=== PATIENT | female | born 1970 | race Caucasian/White ===

== ENCOUNTER 2023-09-16 09:43 | Outpatient (AMB) | payer OTHER, SELFPAY ==
--- NOTE | 2023-09-16 10:09 | A.OFFPC_ITS ---
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 Intake Note: pt is here to est care and is in need of a PE pt had last PAP was in the spring at [facility] pt last colon screen was 2-3 years ago in [place] Allergies No Known Allergies Allergy (Verified 09/16/23 10:33) Medication List - Last Reconciled 09/16/23 by Farzaneh Olivas MD levothyroxine 112 mcg PO DAILY Tobacco use date assessed: 09/16/23 Dental Screening Dental Screen Date: 09/16/23 Did you have a dental visit in the last 12 months?: Yes Did you have a dental problem in the last 6 months where you did not have access to dental care?: No Was dental information given to patient?: Patient has dentist HPI MANAGER COSMETIC-Requesting Physical Exam HPI Details 53-year-old lady here today to establish care with a new PCP and for physical exam. She has cancer status post total thyroidectomy, now with acquired hypothyroidism currently on levothyroxine 112 mcg taken once a day. Currently being followed at [facility] endocrinology. She is up-to-date with her screening mammogram done at [facility] April 19 with benign finding, and last Pap smear was also done at [facility] 04/24/2023, again with negative findings, sees Dr. Herrera. . She states that she had a screening colonoscopy done in [place] approximately 5 years ago. She is up-to-date with all her vaccines including her COVID booster which she got from [employer], has not yet had her tetanus diphtheria whooping cough vaccine. Complains of chronic right lower back pain sometimes radiating to right hip, aggravated by lying on right side, prolonged running, walking. Has been seen by chiropractor , with no improvement with adjustments of her spine. Takes ibuprofen apply as moist heat cold to affected area with no improvement. [facility] Medical History (Updated 09/16/23 @ 10:55 by Farzaneh Olivas MD) Chronic right sacroiliac joint pain Hx of thyroid cancer Acquired hypothyroidism Surgical History (Updated 09/16/23 @ 10:43 by Farzaneh Olivas MD) Hx of thyroidectomy Family History (Updated 09/16/23 @ 10:45 by Farzaneh Olivas MD) Father Substance use disorder Mental health disorder Alcoholism Mother Multiple sclerosis Social History Housing: Condominium Patient Tobacco Use Status: Never used Tobacco e-Cigarette/Vaping Use: Never Used Second Hand Smoke Exposure: No service: No Current occupational status: employed Current occupation: [employer] Current occupational exposures/hazards: No Cognitive needs: No Hearing needs: No Vision needs: No Female Reproductive History Menstrual Date of last pap smear: 04/24/23 Date of Mammogram: 04/19/23 Other: [facility] and [facility] exam Questionnaire PHQ-9 Over the last 2 weeks, how often have you been bothered by any of the following problems? 1. Little interest or pleasure in doing things: not at all 2. Feeling down, depressed, or hopeless: not at all 3. Trouble falling or staying asleep, or sleeping too much: nearly every day 4. Feeling tired or having little energy: nearly every day 5. Poor appetite or overeating: not at all 6. Feeling bad about yourself - or that you are a failure or have let yourself or your family down: not at all 7. Trouble concentrating on things, such as reading the newspaper or watching television: not at all 8. Moving or speaking so slowly that other people could have noticed. Or the opposite - being so fidgety or restless that you have been moving around a lot more than usual: not at all 9. Thoughts that you would be better off or of hurting yourself in some way: not at all Total score: 6 Depression Screening Interpretation: Negative Depression Screening Done: Yes 36573 - PHQ-9 Billing: Yes Source: Developed by Drs. Epi Brice, Gracy Cloud, Gary Baca and colleagues, with an educational osorio from [employer]. Thrive Questionnaire Date Thrive assessed: 09/16/23 I am a: Patient What is your living situation today?: I have a steady place to live Within the past 12 months, did the food you bought not last and you didn't have the money to get more?: Never true Do you have trouble paying for medicines?: No Do you have trouble getting transportation to medical appointments?: No Do you have trouble paying your heating and electricity bill?: No Do you have trouble taking care of your child, family member or friend?: No Do you have trouble with day-to-day activities such as bathing, preparing meals, shopping, managing finances, etc.?: No Are you currently unemployed and looking for a job?: Yes Are you interested in more education?: No AUDIT C Alcohol Use Questionnaire (AUDIT-C) 1. How often do you have a drink containing alcohol?: 2-3 times a week 2. How many drinks containing alcohol do you have on a typical day when you are drinking?: 1 or 2 3. How often do you have six or more drinks on one occasion?: Never Total Score: 3 AILEEN-7 AMB Questionnaire AILEEN-7 Date AILEEN - 7 assessed: 09/16/23 Feeling nervous, anxious, or on edge: 0 = Not at all Not being able to stop or control worryin = Not at all Worrying too much about different things: 0 = Not at all Trouble relaxin = Not at all Being so restless that it is hard to sit still: 0 = Not at all Becoming easily annoyed or irritable: 0 = Not at all Feeling afraid as if something awful might happen: 0 = Not at all Total AILEEN-7 score (0-4 normal; 5-9 mild; 10-14 moderate; 15-21 severe): 0 Source: Developed by Drs. Epi Brice, Gracy Cloud, Gary Baca and colleagues, with an educational osorio from [employer]. AILEEN-7 Assessment Billing AILEEN-7 Assessment Tool: AILEEN-7 Assessment 67419 Review of Systems Const Denies body aches, Denies fatigue, Denies fever(s), Denies headache(s) and Denies weakness Eyes Denies change in vision, Denies eye discharge and Denies itchy eyes ENT Denies dizziness, Denies headache(s), Denies nasal congestion, Denies nasal dis charge and Denies sore throat Card Denies chest pain, Denies lightheadedness, Denies palpitations and Denies dyspnea Resp Denies chest congestion, Denies cough, Denies dyspnea and Denies wheezing GI Denies abdominal pain, Denies change in bowel habits and Denies heartburn Denies hematuria, Denies urinary frequency, Denies dysuria and Denies urinary urgency Musc Reports as per HPI Skin/Breast Denies breast pain, Denies breast mass, Denies lesions and Denies rash Neuro Denies dizziness, Denies headache(s) and Denies weakness Psych Reports no additional complaints Endo Denies fatigue, Denies polydipsia, Denies polyuria and Denies palpitations Demetrio/Lymph Denies easy bruising Aller/Immun Denies itchy eyes, Denies seasonal rhinorrhea and Denies wheezing Physical exam (Primary Care) Vital Signs: Last Vital Signs Pulse 84 09/16/23 10:10 BP 110/76 09/16/23 10:10 Pulse Ox 96 09/16/23 10:10 Oxygen Delivery Method Room Air 09/16/23 10:10 BMI result Body Mass Index 25.6 Tobacco/Smoking Status: Tobacco use Status Tobacco use date assessed 09/16/23 09/16/23 10:17 Patient Tobacco Use Status Never used Tobacco 09/16/23 10:17 e-Cigarette/Vaping Use Never Used 09/16/23 10:17 PHQ-9: PHQ-9 Score PHQ-9: Total score 6 09/16/23 11:08 Depression Screening Interpretation: Negative Thrive Assessment: Date of Thrive Assessment Date Thrive assessed 09/16/23 09/16/23 10:34 Const General: no acute distress and alert Nutritional Appearance: average body habitus Orientation/consciousness: patient oriented x3 HENMT Head: Yes normocephalic and Yes atraumatic Ears: external ears normal, TM's normal bilaterally and EAC's normal General nose exam: Normal external nose present and No nasal discharge present Face and sinus: Yes face symmetric Mouth: Normal oral and palatal mucosa present, lip normal, tongue normal, oropharynx normal and moist mucous membranes Eyes General: appearance normal, both eyes and all related structures Eyelids: Yes eyelids normal Conjunctivae: conjunctivae normal Sclerae: sclerae normal Pupils: Equal, round and reactive pupils present EOM: EOMs intact bilaterally Neck Neck: Yes full ROM, Yes no lymphadenopathy and Yes supple Thyroid: Thyroid normal Chest Breast/axilla palpation: normal palpation of the breasts Resp Effort & Inspection: normal respiratory effort and able to speak in complete sentences Auscultation: clear to auscultation bilaterally Cardio Rate: regular rate Rhythm: regular rhythm Heart sounds: S1 normal heart sound present and S2 normal heart sound present GI Palpation (GI): Soft to palpation, nontender, no guarding and no masses Auscultation: normal bowel sounds General: Yes deferred (sees Dr Herrera) Back/Spine/Pelvis Back: back tenderness Sacroiliac joints: on the right tender to palpation and by passive hyperextension of lower ext Skin General skin exam: no rashes or lesions noted Neuro General: patient oriented x3, gait normal, moves all extremities, Normal light touch and pain sensation, no focal motor deficits and CN's II-XI intact bilaterally Cranial nerves: Yes Equal, round and reactive pupils present Cognition (Neuro): normal cognition Gait exam (Neuro): Normal gait present Motor exam (neuro): 5/5 motor strength present throughout Extrem General: Yes normal to inspection, Yes full ROM, Yes no joint enlargement, Yes no pedal edema and Yes normal gait Psych Appearance: grossly normal and well kempt Mental Status: mental status grossly normal Speech and movement: Normal speech and movement present Affect: normal affect Attitude: cooperative Thought process: Normal thought process present Thought content: Normal thought content present Immunizations Boostrix Tdap 2.5 Lf unit-8 mcg-5 Lf/0.5 mL intramuscular syringe Performing Provider: Farzaneh Olivas MD Performing Location: [facility] Administered by: Lien Alves CMA on 09/16/23 11:08 Dose Route Admin Location Dispensed Lot Number Expiration Date NDC Store Keeper 0.5 mL IM Left Deltoid 0.5 mL [id number] 11/01/25 [id number] [employer] VIS Given Date VIS Provided VIS Publication Date 09/16/23 Single Vaccine 21 Eligibility Eligibility Date Funding Source Not [facility] Eligible 09/16/23 Private Assessment and Plan Assessment & Plan (1) Annual visit for general adult medical examination with abnormal findings: Code(s): Z00.01 - Encounter for general adult medical examination with abnormal findings Plan: Will check appropriate labs. Recommended dental visit every 6 months and regular eye exams, at least every 2 years. Take adequate calcium in diet and vitamin-D 3 at 2000 IU per cap once a day, in addition to weight-bearing exercises to help maintain good muscle tone and weight control. Instructed to do self-breast exam, and continue with yearly mammogram, or currently up-to-date goes to [facility], and sees [facility] OBGYN for her routine Pap and pelvic exam.. Up-to-date with her screening colonoscopy goes to [facility], will get a copy of the results. Up-to-date with her COVID booster and flu shot, Tdap given today. Referred to dermatology for routine skin exam and skin cancer screening (2) Acquired hypothyroidism: Comment: ff'd at endocrinology at [facility] Code(s): E03.9 - Hypothyroidism, unspecified Plan: Followed by endocrine clinic at [facility] currently on levothyroxine 112 mcg daily (3) Hx of thyroid cancer: Code(s): Z85.850 - Personal history of malignant neoplasm of thyroid Plan: Followed at endocrine clinic at [facility] (4) Chronic right sacroiliac joint pain: Code(s): M53.3 - Sacrococcygeal disorders, not elsewhere classified; G89.29 - Other chronic pain Plan: Referral to physical therapy for further evaluation and management (5) Skin cancer screening: Code(s): Z12.83 - Encounter for screening for malignant neoplasm of skin Plan: dermatology consult ordered (6) Need for Tdap vaccination: Code(s): Z23 - Encounter for immunization Plan: Tdap given Orders: Orders Basic Metabolic Panel Fasting 09/16/23 E03.9 - Hypothyroidism, unspecified, Z00.01 - Encounter for general adult medical examination with abnormal findings, Z13.220 - Encounter for screening for lipoid disorders, Z78.0 - Asymptomatic menopausal state Vitamin D 25-OH Total 09/16/23 E03.9 - Hypothyroidism, unspecified, Z00.01 - Encounter for general adult medical examination with abnormal findings, Z13.220 - Encounter for screening for lipoid disorders, Z78.0 - Asymptomatic menopausal state Lipid Panel 09/16/23 E03.9 - Hypothyroidism, unspecified, Z00.01 - Encounter for general adult medical examination with abnormal findings, Z13.220 - Encounter for screening for lipoid disorders, Z78.0 - Asymptomatic menopausal state Thyroid Stimulating Hormone 09/16/23 E03.9 - Hypothyroidism, unspecified, Z00.01 - Encounter for general adult medical examination with abnormal findings, Z13.220 - Encounter for screening for lipoid disorders, Z78.0 - Asymptomatic menopausal state Free T4 (Free Thyroxine) 3 Months E03.9 - Hypothyroidism, unspecified, Z00.01 - Encounter for general adult medical examination with abnormal findings, Z13.220 - Encounter for screening for lipoid disorders, Z78.0 - Asymptomatic menopausal state PT Evaluation and Treatment 09/16/23 G89.29 - Other chronic pain, M53.3 - Sacrococcygeal disorders, not elsewhere classified TDaP Immunization 09/16/23 Z23 - Encounter for immunization Referrals Dermatology Referral Z12.83 - Encounter for screening for malignant neoplasm of skin Coding Level of Care Code New Pt Prev Care 40-64y(89251) Diagnoses Annual visit for general adult medical examination with abnormal findings Z00.01 Acquired hypothyroidism E03.9 Hx of thyroid cancer Z85.850 Chronic right sacroiliac joint pain M53.3; G89.29 Skin cancer screening Z12.83 Need for Tdap vaccination Z23 Additional Codes AILEEN-7 Assessment Billing - AILEEN-7 Assessment Tool: AILEEN-7 Assessment 11710 ([id number])
[2023-09-16 10:10] VITALS: BP 110/76; PULSE 84; O2SAT 96; BMI 25.6
== END 2023-09-16 11:51 | disposition home or self-care (01) ==
PROVIDERS: PCP Internal Medicine; Visit Provider Internal Medicine
DX: Z00.00 Encounter for general adult medical examination without abnormal findings (principal); E03.9 Hypothyroidism, unspecified; Z85.850 Personal history of malignant neoplasm of thyroid; Z23 Encounter for immunization; M53.3 Sacrococcygeal disorders, not elsewhere classified; G89.29 Other chronic pain
CPT/HCPCS: 90471; 90715; 99386

== ENCOUNTER 2023-09-16 11:08 | Outpatient (REF) | payer OTHER, SELFPAY ==
[2023-09-16 14:25] LABS: Anion Gap 12 (12-20); Blood Urea Nitrogen 17 mg/dL (9-16); Calcium 9.9 mg/dL (8.4-10.2); Carbon Dioxide 29 mmol/L (22-29); Chloride 106 mmol/L (96-108); Cholesterol 200 mg/dL (<200); Estimated Glomerular Filt Rate > 60; Glucose Fasting 89 mg/dL (60-99); HDL Cholesterol 67 mg/dL (>40); LDL Cholesterol Calculated 118 mg/dL (<100); Potassium 4.6 mmol/L (3.3-5.1); Sodium 142 mmol/L (135-145); Thyroid Stimulating Hormone 0.01 uIU/mL (0.32-4.0); Triglycerides 77 mg/dL (<150); Vitamin D 25-OH Total 45.9 ng/mL (>30)
== END 2023-09-16 11:09 | disposition home or self-care (01) ==
LOC: HO.HMGCLDS 11:08
PROVIDERS: PCP Internal Medicine; Visit Provider Internal Medicine
DX: Z00.01 Encounter for general adult medical examination with abnormal findings (principal); Z13.220 Encounter for screening for lipoid disorders; E03.9 Hypothyroidism, unspecified; Z78.0 Asymptomatic menopausal state
CPT/HCPCS: 36415; 80048; 80061; 82306; 84443

== ENCOUNTER 2024-10-01 12:32 | Outpatient (AMB) | payer OTHER, SELFPAY ==
--- NOTE | 2024-10-01 12:34 | MHC.PC.OV ---
Vital Signs 10/01/24 12:41 Height 5 ft 4 in Weight 138 lb BMI 23.7 BP 90/62 Blood Pressure Location Rt brachial Position Sitting Pulse 93 Pulse Source Pulse Oximeter Pulse Oximetry (%) 97 Oxygen Delivery Method Room Air Intake Visit Reasons: ANNUAL Intake Note: Pt is here today for her PE: Last mammogram 04/19/23, papsmear 04/24/23 Allergies No Known Allergies Allergy (Verified 10/01/24 12:55) Medication List - Last Reconciled 10/01/24 by Farzaneh Olivas MD thyroid (pork) (SKI MAKER Thyroid) 90 mg PO DAILY Tobacco use date assessed: 10/01/24 Dental Screening Dental Screen Date: 10/01/24 Did you have a dental visit in the last 12 months?: Yes Did you have a dental problem in the last 6 months where you did not have access to dental care?: No Was dental information given to patient?: Patient has dentist HPI ANNUAL HPI Details 54-year-old lady with history of papillary thyroid carcinoma status post mastectomy, currently followed at [facility] endocrine clinic and on SKI MAKER thyroid 90 mcgg daily, here today for physical exam. Pap smear and mammogram was done a year ago at [facility]. [facility] Medical History (Updated 10/04/24 @ 16:15 by Farzaneh Olivas MD) Exercise-induced bronchospasm Postsurgical hypothyroidism Hx of papillary thyroid carcinoma Chronic right sacroiliac joint pain Hx of thyroid cancer Surgical History (Updated 10/01/24 @ 13:33 by Farzaneh Olivas MD) Hx of thyroidectomy Family History (Updated 09/16/23 @ 10:45 by Farzaneh Olivas MD) Father Substance use disorder Mental health disorder Alcoholism Mother Multiple sclerosis Social History Housing: Condominium Patient Tobacco Use Status: Never used Tobacco e-Cigarette/Vaping Use: Never Used Second Hand Smoke Exposure: No service: No Current occupational status: employed Current occupation: [employer] Current occupational exposures/hazards: No Cognitive needs: No Hearing needs: No Vision needs: No Female Reproductive History Menstrual Other: Currently goes to [facility] OBGYN for her routine Pap and pelvic exam as well as mammogram screenings . Up-to-date with his screening colonoscopy done in [place] 6 years ago with negative findings, per patient. Has been feeling well except for intermittent episodes of wheezing especially when going outdoors or when she runs. Requesting refill on a prescription for albuterol inhaler which has used in the past for exercise-induced bronchospasm. Questionnaire PHQ-9 Over the last 2 weeks, how often have you been bothered by any of the following problems? 1. Little interest or pleasure in doing things: not at all 2. Feeling down, depressed, or hopeless: not at all 3. Trouble falling or staying asleep, or sleeping too much: more than half the days 4. Feeling tired or having little energy: several days 5. Poor appetite or overeating: not at all 6. Feeling bad about yourself - or that you are a failure or have let yourself or your family down: not at all 7. Trouble concentrating on things, such as reading the newspaper or watching television: not at all 8. Moving or speaking so slowly that other people could have noticed. Or the opposite - being so fidgety or restless that you have been moving around a lot more than usual: not at all 9. Thoughts that you would be better off or of hurting yourself in some way: not at all Total score: 3 Depression Screening Interpretation: Negative Depression Screening Done: Yes 55919 - PHQ-9 Billing: Yes Source: Developed by Drs. Epi Brice, Gracy Cloud, Gary Baca and colleagues, with an educational osorio from [employer]. Thrive Questionnaire Date Thrive assessed: 10/01/24 I am a: Patient What is your living situation today?: I have a steady place to live Within the past 12 months, did the food you bought not last and you didn't have the money to get more?: Never true Within the past 12 months, did you worry whether your food would run out before you got money to buy more?: Never true Do you have trouble paying for medicines?: No Do you have trouble getting transportation to medical appointments?: No Do you have trouble paying your heating and electricity bill?: No Do you have trouble taking care of your child, family member or friend?: No Do you have trouble with day-to-day activities such as bathing, preparing meals, shopping, managing finances, etc.?: No Are you currently unemployed and looking for a job?: No Are you interested in more education?: No Please select the resources that you would like help with: None Currently or been in a relationship where the following occur: No concerns reported THRIVE Score: 0 AUDIT C Alcohol Use Questionnaire (AUDIT-C) 1. How often do you have a drink containing alcohol?: Monthly or less 2. How many drinks containing alcohol do you have on a typical day when you are drinking?: 1 or 2 3. How often do you have six or more drinks on one occasion?: Never Total Score: 1 AILEEN-7 AMB Questionnaire AILEEN-7 Date AILEEN - 7 assessed: 10/01/24 Feeling nervous, anxious, or on edge: 0 = Not at all Not being able to stop or control worryin = Not at all Worrying too much about different things: 0 = Not at all Trouble relaxin = Not at all Being so restless that it is hard to sit still: 0 = Not at all Becoming easily annoyed or irritable: 0 = Not at all Feeling afraid as if something awful might happen: 0 = Not at all Total AILEEN-7 score (0-4 normal; 5-9 mild; 10-14 moderate; 15-21 severe): 0 Source: Developed by Drs. Epi Brice, Gracy Cloud, Gary Baca and colleagues, with an educational osorio from [employer]. AILEEN-7 Assessment Billing AILEEN-7 Assessment Tool: AILEEN-7 Assessment 01995 Review of Systems Const Denies body aches, Denies fatigue, Denies fever(s), Denies headache(s) and Denies weakness Eyes Denies change in vision ENT Denies dizziness, Denies headache(s), Denies nasal congestion, Denies nasal discharge and Denies sore throat Card Denies chest pain, Denies lightheadedness, Denies palpitations and Denies dyspnea Resp Reports as per HPI, Denies chest congestion and Denies dyspnea GI Denies abdominal pain, Denies change in bowel habits and Denies heartburn Denies hematuria, Denies urinary frequency, Denies dysuria and Denies urinary urgency Musc Reports as per HPI Skin/Breast Denies breast pain, Denies breast mass, Denies lesions and Denies rash Neuro Denies dizziness, Denies headache(s) and Denies weakness Psych Reports no additional complaints Endo Denies fatigue, Denies polydipsia, Denies polyuria and Denies palpitations Demetrio/Lymph Denies easy bruising Aller/Immun Denies seasonal rhinorrhea Physical exam (Primary Care) Vital Signs: Last Vital Signs Pulse 93 10/01/24 12:41 BP 90/62 10/01/24 12:41 Pulse Ox 97 10/01/24 12:41 Oxygen Delivery Method Room Air 10/01/24 12:41 BMI result Body Mass Index 23.7 Tobacco/Smoking Status: Tobacco use Status Tobacco use date assessed 10/01/24 10/01/24 12:36 Patient Tobacco Use Status Never used Tobacco 10/01/24 12:36 e-Cigarette/Vaping Use Never Used 10/01/24 12:36 PHQ-9: PHQ-9 Score PHQ-9: Total score 3 10/01/24 13:16 Depression Screening Interpretation: Negative Thrive Assessment: Date of Thrive Assessment Date Thrive assessed 10/01/24 10/01/24 12:44 Currently or been in a relationship where the following occur: No concerns reported Advance Care Planning discussion: Completed/Scanned Date of discussion: 10/01/24 Who was present: Patient Forms completed: Health Care Proxy Time spent: 16-45 minutes Actual minutes spent: 3 Const General: no acute distress and alert Nutritional Appearance: average body habitus Orientation/consciousness: patient oriented x3 HENMT Head: Yes normocephalic Ears: external ears normal, TM's normal bilaterally and EAC's normal General nose exam: Normal external nose present Face and sinus: Yes face symmetric Mouth: Normal oral and palatal mucosa present, oropharynx normal and moist mucous membranes Eyes General: appearance normal, both eyes and all related structures Eyelids: Yes eyelids normal Conjunctivae: conjunctivae normal Sclerae: sclerae normal Pupils: Equal, round and reactive pupils present EOM: EOMs intact bilaterally Neck Neck: Yes full ROM, Yes no lymphadenopathy and Yes supple Chest Breast/axilla palpation: normal palpation of the breasts Resp Effort & Inspection: normal respiratory effort and able to speak in complete sentences Auscultation: clear to auscultation bilaterally Cardio Rate: regular rate Rhythm: regular rhythm Heart sounds: S1 normal heart sound present and S2 normal heart sound present GI Palpation (GI): Soft to palpation, nontender, no guarding and no masses Auscultation: normal bowel sounds General: Yes no CVA tenderness and Yes deferred (sees Dr Herrera) Back/Spine/Pelvis Back: no CVA tenderness and No back tenderness Skin General skin exam: no rashes or lesions noted Neuro General: patient oriented x3, gait normal, moves all extremities, Normal light touch and pain sensation, no focal motor deficits and CN's II-XI intact bilaterally Cranial nerves: Yes Equal, round and reactive pupils present Cognition (Neuro): normal cognition Gait exam (Neuro): Normal gait present Motor exam (neuro): 5/5 motor strength present throughout Extrem General: Yes normal to inspection, Yes full ROM, Yes no joint enlargement, Yes no pedal edema and Yes normal gait Psych Appearance: grossly normal and well kempt Mental Status: mental status grossly normal Speech and movement: Normal speech and movement present Affect: normal affect Attitude: cooperative Thought process: Normal thought process present Thought content: Normal thought content present Coding Level of Care Code Est Pt Prev Care 40-64y(90186) Diagnoses Annual visit for general adult medical examination with abnormal findings Z00.01 Acquired hypothyroidism E03.9 Encounter for counseling regarding advance directives Z71.89 Exercise-induced bronchospasm J45.990 Additional Codes PHQ-9 - 43596 - PHQ-9 Billing: Yes ([id number]) AILEEN-7 Assessment Billing - AILEEN-7 Assessment Tool: AILEEN-7 Assessment 02664 ([id number]) Vital Signs *Quality* - Advance Care Planning discussion: Completed/Scanned ([id number]) Vital Signs *Quality* - Time spent: 16-45 minutes ([id number]) Assessment & Plan Assessment & Plan (1) Annual visit for general adult medical examination with abnormal findings: Code(s): Z00.01 - Encounter for general adult medical examination with abnormal findings Plan: Will check appropriate labs. Continue regular dental visit every 6 months and regular eye exams, at least every 2 years. Take adequate calcium in diet and vitamin-D 3 at 2000 IU per cap once a day, in addition to weight-bearing exercises to help maintain good muscle tone and weight control. Instructed to do self-breast exam, and reminded to get yearly mammogram, currently goes to [facility] and sees Dr. Herrera for her routine Pap and pelvic exam. Up-to-date with her screening colonoscopy done 6 years ago in [place], normal per patient. Up-to-date with her shingles vaccination, yearly flu shot, Tdap reminded to get COVID booster (2) Acquired hypothyroidism: Comment: ff'd at endocrinology at [facility] Code(s): E03.9 - Hypothyroidism, unspecified Category: Medical Plan: Followed by Dr. Flores at [facility] endocrine clinic currently prescribed SKI MAKER thyroid (3) Encounter for counseling regarding advance directives: Code(s): Z71.89 - Other specified counseling Plan: Initiated the conversation about Advanced Directives. Advanced Directives help patients prepare for current and future decisions about their medical treatment and place of care. Discussed with patient that it is a process where a patients current condition and prognosis are reviewed, their wishes for information regarding their illness are elicited, and likely medical dilemmas are presented and options discussed. Healthcare proxy form completed today. The form can be amended as needed, reviewed yearly and make changes as needed (4) Exercise-induced bronchospasm: Code(s): J45.990 - Exercise induced bronchospasm Category: Medical Plan: Prescription refill sent for albuterol inhaler 2 puffs at least 30 minutes before exertion or every 6 hours as needed for wheezing. Orders: Orders Vitamin D 25-OH Total 10/02/24 E03.9 - Hypothyroidism, unspecified, Z00.01 - Encounter for general adult medical examination with abnormal findings, Z71.89 - Other specified counseling Complete Blood Count Auto Diff 10/02/24 E03.9 - Hypothyroidism, unspecified, Z00.01 - Encounter for general adult medical examination with abnormal findings, Z71.89 - Other specified counseling Basic Metabolic Panel Fasting 10/02/24 E03.9 - Hypothyroidism, unspecified, Z00.01 - Encounter for general adult medical examination with abnormal findings, Z71.89 - Other specified counseling Medications: New albuterol sulfate 90 mcg/actuation 2 puffs inhalation Q6H PRN 8.5 grams 0RF shortness of breath or wheezing
[2024-10-01 12:41] VITALS: BP 90/62; PULSE 93; O2SAT 97; BMI 23.7
== END 2024-10-01 13:33 | disposition home or self-care (01) ==
LOC: HO.HMCC 12:33
PROVIDERS: PCP Internal Medicine; Visit Provider Internal Medicine
DX: Z00.01 Encounter for general adult medical examination with abnormal findings (principal); E03.9 Hypothyroidism, unspecified; Z71.89 Other specified counseling; J45.990 Exercise induced bronchospasm

== ENCOUNTER → 2024-10-01 12:32 | Outpatient (BNVA) | payer OTHER, SELFPAY | PROVIDERS: PCP Internal Medicine; Visit Provider Internal Medicine | DX: Z00.01 Encounter for general adult medical examination with abnormal findings (principal); E03.9 Hypothyroidism, unspecified; J45.990 Exercise induced bronchospasm; Z71.89 Other specified counseling | CPT/HCPCS: 96127 ==

== ENCOUNTER 2024-10-02 06:46 | Outpatient (REF) | payer OTHER, SELFPAY ==
[2024-10-02 10:09] LABS: Basophils Percent Auto 0.6 % (0-2); Eosinophils Absolute Auto 0.2 X10*3/uL (0.0-0.4); Hematocrit 41.6 % (37.0-47.0); Hemoglobin 13.9 g/dl (12.0-16.0); Imm Gran Abs Auto 0.01 X10*3/uL (0.00-0.03); Imm Gran Pct Auto 0.2 % (0.0-0.4); Lymphocytes Absolute Auto 1.6 X10*3/uL (1.2-4.9); MANUAL DIFF FLAG NO; Mean Corpuscular HGB Conc 33.4 g/dl (31.0-35.0); Mean Corpuscular Volume 89.8 fL (80.0-98.0); Mean Platelet Volume 10.7 fL (9.4-12.3); Monocytes Absolute Auto 0.4 X10*3/uL (0.1-1.2); Monocytes Percent Auto 7.9 % (2-11); Neutrophils Absolute Auto 2.6 x10*3/uL (2.0-8.3); Neutrophils Percent Auto 53.3 % (45-73); Platelet Count 173 X10*3/uL (160-400); Red Blood Count 4.63 X10*6/uL (4.20-5.50); Red Cell Distribution Width 12.9 % (11.0-16.0); White Blood Count 4.8 X10*3/uL (4.8-10.8)
[2024-10-02 12:21] LABS: Anion Gap 13 (12-20); Blood Urea Nitrogen 18 mg/dL (9-16); Calcium 9.7 mg/dL (8.4-10.2); Carbon Dioxide 27 mmol/L (22-29); Chloride 108 mmol/L (96-108); Estimated Glomerular Filt Rate > 60; Free T4 (Free Thyroxine) 1.01 ng/dL (0.71-1.85); Glucose Fasting 98 mg/dL (60-99); Potassium 4.7 mmol/L (3.3-5.1); Sodium 143 mmol/L (135-145); Vitamin D 25-OH Total 33.9 ng/mL (>30)
== END 2024-10-02 06:47 | disposition home or self-care (01) ==
LOC: HO.HMGCLDS 06:46
PROVIDERS: PCP Internal Medicine; Visit Provider Internal Medicine
DX: Z00.01 Encounter for general adult medical examination with abnormal findings (principal); E03.9 Hypothyroidism, unspecified; Z13.220 Encounter for screening for lipoid disorders; Z78.0 Asymptomatic menopausal state; Z71.89 Other specified counseling
CPT/HCPCS: 36415; 80048; 82306; 84439; 85025

== ENCOUNTER 2025-10-06 14:12 | Outpatient (AMB) | payer OTHER, SELFPAY ==
--- NOTE | 2025-10-06 14:41 | MHC.PC.OV ---
Vital Signs 10/06/25 15:00 Height 5 ft 4 in Weight 143 lb BMI 24.5 BP 100/78 Blood Pressure Location Lt brachial Position Sitting Respiration 15 Pulse 78 Pulse Source Pulse Oximeter Temp 98.0 F Temp Source Oral Pulse Oximetry (%) 94 Oxygen Delivery Method Room Air Intake Visit Reasons: Annual PE Intake Note: Pt is here today for her PE: Last mammogram 04/19/23, papsmear 04/24/23 Rfid Engineer Required: No Allergies No Known Allergies Allergy (Verified 10/06/25 15:14) Medication List - Last Reconciled 10/06/25 by Farzaneh Olivas MD albuterol sulfate 90 mcg/actuation 2 puffs inhalation Q6H PRN thyroid (pork) (CLERICAL ADMINISTRATIVE ASSISTANT Thyroid) 90 mg PO DAILY Tobacco use date assessed: 10/06/25 Dental Screening Dental Screen Date: 10/06/25 Did you have a dental visit in the last 12 months?: Yes Did you have a dental problem in the last 6 months where you did not have access to dental care?: No Was dental information given to patient?: Patient has dentist HPI Annual PE HPI Details 55-year-old lady here today for her physical exam. She has past medical history significant for papillary thyroid cancer status post total thyroidectomy without adjuvant radioactive iodine treatment, currently being followed at [facility] endocrine clinic by Dr. Ant Pruitt, and now on CLERICAL ADMINISTRATIVE ASSISTANT thyroid replacement 90 mg daily. She has exercise-induced bronchospasm currently uses albuterol inhaler as needed prior to exercising. Has been diagnosed to have anxiety disorder not on any medication at present time, previously on venlafaxine. Feels well at present. Goes to [facility] for her breast cancer screening, last mammogram on record was in 2022 with benign findings She sees Dr. Herrera for her cervical cancer screening and pelvic exam, with last Pap smear done 04/24/2023 with benign findings Last blood work was in September 2023, which showed she was not anemic, had normal kidney function, and a normal thyroid level. Her vitamin D was 33, which is on the lower end of the normal range of 30-100. Total cholesterol was borderline at 200, with an LDL of 118 and a good HDL of 67. The patient's last colonoscopy was in 2020 and was normal, with the next one due in 2030. She has no family history of colon cancer and denies irregular bowel movements or blood in the stool. The patient reports difficulty sleeping and takes Unisom. She denies depression and anxiety. She is active with walking and weight training, and her previous sacroiliac joint pain has resolved, which she attributes to taking collagen powder. She is up to date with her dental and eye exams, with no glaucoma, cataracts, or macular degeneration found. Her immunizations are current, including flu, COVID-19, tetanus, and shingles vaccines. [facility] Medical History (Updated 10/06/25 @ 15:18 by Farzaneh Olivas MD) Exercise-induced bronchospasm Postsurgical hypothyroidism Hx of papillary thyroid carcinoma Chronic right sacroiliac joint pain Hx of thyroid cancer Surgical History Hx of thyroidectomy Family History Father Substance use disorder Mental health disorder Alcoholism Mother Multiple sclerosis Social History Housing: Condominium Patient Tobacco Use Status: Never used Tobacco e-Cigarette/Vaping Use: Never Used Second Hand Smoke Exposure: No service: No Current occupational status: employed Current occupation: [employer] Current occupational exposures/hazards: No Cognitive needs: No Hearing needs: No Vision needs: No Female Reproductive History Menstrual Menopause type: natural Date of last pap smear: 04/24/23 (Goes to [facility], sees ) Questionnaire PHQ-9 Over the last 2 weeks, how often have you been bothered by any of the following problems? 1. Little interest or pleasure in doing things: not at all 2. Feeling down, depressed, or hopeless: not at all 3. Trouble falling or staying asleep, or sleeping too much: several days 4. Feeling tired or having little energy: several days 5. Poor appetite or overeating: not at all 6. Feeling bad about yourself - or that you are a failure or have let yourself or your family down: not at all 7. Trouble concentrating on things, such as reading the newspaper or watching television: not at all 8. Moving or speaking so slowly that other people could have noticed. Or the opposite - being so fidgety or restless that you have been moving around a lot more than usual: not at all 9. Thoughts that you would be better off or of hurting yourself in some way: not at all Total score: 2 Depression Screening Interpretation: Negative Depression Screening Done: Yes 17198 - PHQ-9 Billing: Yes Source: Developed by Drs. Epi Brice, Gracy Cloud, Gary Baca and colleagues, with an educational osorio from [employer]. Thrive Questionnaire Date Thrive assessed: 09/29/25 I am a: Patient What is your living situation today?: I have a steady place to live Within the past 12 months, did the food you bought not last and you didn't have the money to get more?: Never true Within the past 12 months, did you worry whether your food would run out before you got money to buy more?: Never true Do you have trouble paying for medicines?: No Do you have trouble getting transportation to medical appointments?: No Do you have trouble paying your heating and electricity bill?: No Do you have trouble taking care of your child, family member or friend?: No Do you have trouble with day-to-day activities such as bathing, preparing meals, shopping, managing finances, etc.?: No Are you currently unemployed and looking for a job?: Yes Are you interested in more education?: No Please select the resources that you would like help with: None Currently or been in a relationship where the following occur: No concerns reported THRIVE Score: 0 AUDIT C Alcohol Use Questionnaire (AUDIT-C) 1. How often do you have a drink containing alcohol?: Monthly or less 2. How many drinks containing alcohol do you have on a typical day when you are drinking?: 1 or 2 3. How often do you have six or more drinks on one occasion?: Never Total Score: 1 Score Reviewed/Action Taken: Yes AILEEN-7 AMB Questionnaire AILEEN-7 Date AILEEN - 7 assessed: 10/06/25 Feeling nervous, anxious, or on edge: 0 = Not at all Not being able to stop or control worryin = Not at all Worrying too much about different things: 0 = Not at all Trouble relaxin = Several days Being so restless that it is hard to sit still: 0 = Not at all Becoming easily annoyed or irritable: 0 = Not at all Feeling afraid as if something awful might happen: 0 = Not at all Total AILEEN-7 score (0-4 normal; 5-9 mild; 10-14 moderate; 15-21 severe): 1 Source: Developed by Drs. Epi Brice, Gracy Cloud, Gary Baca and colleagues, with an educational osorio from [employer]. AILEEN-7 Assessment Billing AILEEN-7 Assessment Tool: AILEEN-7 Assessment 30025 Review of Systems Const Denies body aches, Reports difficulty sleeping (Due to occasional hot flashes), Denies fatigue, Denies fever(s), Denies headache(s) and Denies weakness Eyes Details: [facility] Denies change in vision ENT Denies dizziness, Denies headache(s), Denies nasal congestion, Denies nasal discharge and Denies sore throat Card Denies chest pain, Denies lightheadedness, Denies palpitations and Denies dyspnea Resp Denies chest congestion and Denies dyspnea GI Denies abdominal pain, Denies change in bowel habits and Denies heartburn Denies hematuria, Denies urinary frequency, Denies dysuria and Denies urinary urgency Musc Reports as per HPI Skin/Breast Denies breast pain, Denies breast mass, Reports alopecia (Thinning hair), Denies lesions and Denies rash Neuro Denies dizziness, Denies headache(s) and Denies weakness Psych Reports no additional complaints Endo Denies fatigue, Denies polydipsia, Denies polyuria and Denies palpitations Demetrio/Lymph Denies easy bruising Aller/Immun Denies seasonal rhinorrhea Physical exam (Primary Care) Vital Signs: Last Vital Signs Temp 98.0 F 10/06/25 15:00 Pulse 78 10/06/25 15:00 Resp 15 10/06/25 15:00 BP 100/78 10/06/25 15:00 Pulse Ox 94 10/06/25 15:00 Oxygen Delivery Method Room Air 10/06/25 15:00 BMI result Body Mass Index 24.5 Tobacco/Smoking Status: Tobacco use Status Tobacco use date assessed 10/06/25 10/06/25 14:55 Patient Tobacco Use Status Never used Tobacco 10/06/25 14:41 e-Cigarette/Vaping Use Never Used 10/06/25 14:41 PHQ-9: PHQ-9 Score PHQ-9: Total score 2 10/14/25 01:42 Depression Screening Interpretation: Negative Thrive Assessment: Date of Thrive Assessment Date Thrive assessed 09/29/25 10/06/25 14:41 Currently or been in a relationship where the following occur: No concerns reported Const General: no acute distress and alert Nutritional Appearance: average body habitus Orientation/consciousness: patient oriented x3 HENMT Head: Yes normocephalic Ears: external ears normal, TM's normal bilaterally and EAC's normal General nose exam: Normal external nose present Face and sinus: Yes face symmetric Mouth: oropharynx normal and moist mucous membranes Eyes General: appearance normal, both eyes and all related structures Eyelids: Yes eyelids normal Conjunctivae: conjunctivae normal Sclerae: sclerae normal Pupils: Equal, round and reactive pupils present EOM: EOMs intact bilaterally Neck Neck: Yes full ROM, Yes no lymphadenopathy and Yes supple Chest Breast/axilla palpation: normal palpation of the breasts Resp Effort & Inspection: normal respiratory effort and able to speak in complete sentences Auscultation: clear to auscultation bilaterally Cardio Rate: regular rate Rhythm: regular rhythm Heart sounds: S1 normal heart sound present and S2 normal heart sound present GI Palpation (GI): Soft to palpation, nontender, no guarding and no masses Auscultation: normal bowel sounds General: Yes no CVA tenderness and Yes deferred (sees Dr Herrera) Back/Spine/Pelvis Back: no CVA tenderness and No back tenderness Skin General skin exam: no rashes or lesions noted Neuro General: patient oriented x3, gait normal, moves all extremities, Normal light touch and pain sensation, no focal motor deficits and CN's II-XI intact bilaterally Cranial nerves: Yes Equal, round and reactive pupils present Cognition (Neuro): normal cognition Gait exam (Neuro): Normal gait present Motor exam (neuro): 5/5 motor strength present throughout Extrem General: Yes normal to inspection, Yes full ROM, Yes no joint enlargement, Yes no pedal edema and Yes normal gait Psych Appearance: grossly normal and well kempt Mental Status: mental status grossly normal Speech and movement: Normal speech and movement present Affect: normal affect Coding Level of Care Code Est Pt Prev Care 40-64y(58753) Diagnoses Annual visit for general adult medical examination with abnormal findings Z00.01 Encounter for screening for lipid disorder Z13.220 Postsurgical hypothyroidism E89.0 Exercise-induced bronchospasm J45.990 Additional Codes AILEEN-7 Assessment Billing - AILEEN-7 Assessment Tool: AILEEN-7 Assessment 84078 ([id number]) PHQ-9 - 28821 - PHQ-9 Billing: Yes ([id number]) Assessment & Plan Assessment & Plan (1) Annual visit for general adult medical examination with abnormal findings: Code(s): Z00.01 - Encounter for general adult medical examination with abnormal findings Plan: The patient is due for several preventive screenings. She will be advised to schedule her annual mammogram. A referral will be provided for a skin cancer screening with a stadium manager. Plan to order fasting labs including a CMP, lipid panel, and vitamin D level. The patient's vaccinations are up-to-date; she will need pneumonia and RSV vaccines at age 63. Her next colon cancer screening is not due until 2030, with the Cologuard test discussed as a future option. (2) Encounter for screening for lipid disorder: Code(s): Z13.220 - Encounter for screening for lipoid disorders Plan: Last labs showed a total cholesterol of 200 and LDL of 118, but has HDL of 67. No medication is indicated at this time. Will monitor with a repeat fasting lipid panel. Advised to try following a Mediterranean diet, low in processed foods, higher in lean meat, fiber. Do at least 30 minutes of moderate intensity exercise 3 to 4 times a week. (3) Postsurgical hypothyroidism: Comment: Followed by Dr. Pruitt at [facility] endocrine clinic Code(s): E89.0 - Postprocedural hypothyroidism Category: Medical Plan: Currently followed by [facility] endocrine clinic, takes CLERICAL ADMINISTRATIVE ASSISTANT thyroid 90 mg daily (4) Exercise-induced bronchospasm: Code(s): J45.990 - Exercise induced bronchospasm Category: Medical Plan: Uses albuterol inhaler as needed for episodes of bronchospasm and wheezing triggered by changes in temperature and exercise. Orders: Orders Alanine Aminotransferase 10/06/25 Z13.220 - Encounter for screening for lipoid disorders, Z13.1 - Encounter for screening for diabetes mellitus, Z78.0 - Asymptomatic menopausal state Basic Metabolic Panel Fasting 10/06/25 Z13.220 - Encounter for screening for lipoid disorders, Z13.1 - Encounter for screening for diabetes mellitus, Z78.0 - Asymptomatic menopausal state Lipid Panel 10/06/25 Z13.220 - Encounter for screening for lipoid disorders, Z13.1 - Encounter for screening for diabetes mellitus, Z78.0 - Asymptomatic menopausal state Aspartate Amino Transferase 10/06/25 Z13.220 - Encounter for screening for lipoid disorders, Z13.1 - Encounter for screening for diabetes mellitus, Z78.0 - Asymptomatic menopausal state Vitamin D 25-OH Total 10/06/25 Z13.220 - Encounter for screening for lipoid disorders, Z13.1 - Encounter for screening for diabetes mellitus, Z78.0 - Asymptomatic menopausal state
[2025-10-06 15:00] VITALS: BP 100/78; PULSE 78; RESP 15; TEMP 36.7; O2SAT 94; BMI 24.5
--- OUTSIDE RECORDS SUMMARY | 2025-10-06 17:30 | XMS_ITS | Patient Health Record ---
Author Organization [facility] Address [address] [place] [address] Care Team Providers Care Tennis Racket Repairer Name Role Phone Alvaro Negron MD Primary Care Provider Unavailab holt roniTez Sheikh Unavailable [phone] Reason For Referral No Information Medications Medication SIG (Take, Route, Fr equency, Duration) Notes Start Date End Date Status vitamin D as directed Active Vitamin C Active Flax Seed Oil 1000 MG as directed Orally Active Piroxicam 20 MG 1 capsule with food Orally Once a day with food; Duration: 30 day(s) Active Multivitamins as directed Orally Active Problems Problem Type SNOMED Code ICD Code Onset Dates Problem Status W/U Status Risk Notes Problem Bursitis (31670346) Bursitis (727.3) Active confirmed Problem Myositis (46412702) Myositis (729.1) Active confirmed Problem Pain in limb (50229045) Pain in Limb (729.5) Active confirmed Problem Plantar fasciitis (382197707) Plantar Fasciitis (728.71) Active confirmed Problem Calcaneal spur (51485044) Calcaneal spur (726.73) Active confirmed Plan Of Treatment Pending Test Test Name Order Date X ray : Foot, right 2V 04/03/2012 Insurance Providers Payer Name Payer Address Payer Phone Subscriber Number Group Number Insured Name Patient Relationship to Insured Coverage Start Date Coverage End Date Cigna [address] [place] [phone] [id number] Cole Langford Spouse - patient is the spouse of the insured 1 Medical (General) History Medical History History ICD Code chicken pox
--- OUTSIDE RECORDS SUMMARY | 2025-10-06 17:30 | XMS_ITS | Clinical Summary ---
Author Organization [facility] Address [address] [place] [address] Phone Care Team Providers Care Recreation Superintendent Name Role Phone Pcp, Unknown Primary Care Provider Unavailabl e Allergies No known active allergies Medications indomethacin (INDOCIN) 25 MG capsule Take 1 capsule by mouth 2 (two) times a day. with food 5 Active predniSONE (DELTASONE) 10 MG tablet 4 tabs po qd for 3 d, 3 tabs po qd for 3 d, 2 qd X3 d, 1 qd x 3d. Orally Once a day 5 Active albuterol (VENTOLIN HFA) 90 mcg/actuation inhaler Inhale 2 puffs into the lungs every 4 (four) hours as needed. 0 Active cholecalciferol (VITAMIN D3) 1,000 unit tablet Take 1 tablet by mouth daily. Active Medication-Free Text Biotin Active levonorgestrel (MIRENA) 20 mcg/24 hr (5 years) intrauterine device 1 Device by Intrauterine route once. Active Active Problems Problem Noted Date Diagnosed Date Asthma 04/01/2018 Calcium pyrophosphate deposition disease 018 Hypercalcemia 04/01/2018 Family History Medical History Relation Comments Hyperlipidemia Brother 1 Hyperlipidemia Brother 2 No Known Problems Daughter 1 No Known Problems Daughter 2 Bipolar disorder Father CV disease Father Diabetes Father Guillain-Bender syndrome Father Hyperlipidemia Father Hypertension Father Stroke Father Cancer Mother cervical Hyperlipidemia Mother Multiple sclerosis Mother dx at age 40 Asthma Sister No Known Problems Son 1 No Known Problems Son 2 Relation Status Comments Brother 1 Alive Brother 2 Alive Daughter 1 Alive Daughter 2 Alive Father (Age 65) Mother Alive Sister Alive Son 1 Alive Son 2 Alive Social History Tobacco Use Types Packs/Day Years Used Date Smoking Tobacco: Never Smokeless Tobacco: Never Alcohol Use Standard Drinks/Week Comments Yes 0 (1 standard drink = 0.6 oz pur e alcohol) socially Education Answer Date Recorded Are you interested in more education? Not on roberto e 03/22/2023 Are you concerned about learning? Not on file 03/22/2023 No 03/22/2023 No 03/22/2023 Digital Access Answer Date Recorded No 04/22/2023 No 04/22/2023 Reliable internet access at home? Not on file 04/22/2023 Device with a working camera? Not on file Comments Unknown Sex and Gender Information Value Date Recorded Sex Assigned at Not on file Legal Sex Female 9:37 PM EDT Gender Identity Not on file Sexual Orientation Not on file Last Filed Vital Signs Vital Sign Reading Time Taken Comments Blood Pressure 100/60 04/01/2018 2:16 PM EDT Pulse 81 04/01/2018 2:16 PM EDT Temperature 36.8 C (98.3 F) 04/01/2018 2:16 PM EDT Respiratory Rate 16 04/01/2018 2:16 PM EDT Oxygen Saturation 96% 04/01/2018 2:16 PM EDT Inhaled Oxygen Concentration - - Weight 64.3 kg (141 lb 12.8 oz) 04/01/2018 2:16 PM EDT Height 163.8 cm (5' 4.5 ) 04/01/2018 2:16 PM EDT Body Mass Index 23.96 04/01/2018 2:16 PM EDT Plan of Treatment Health Maintenance Due Date Last Done Comments Adult Td,Tdap Booster 1968 HEPATITIS C SCREENING 1986 HIV ONE-TIME SCREENING (18-6 5 YEARS) 1986 PNEUMOCOCCAL VACCINES (50+ years) (1 of 2 - PCV) 1987 COLOGUARD 2013 COLONOSCOPY 2013 COLORECTAL CANCER SCREENING 2013 FIT TEST 2013 FOBT 2013 SIGMOIDOSCOPY 2013 VIRTUAL COLONOSCOPY 2013 MAMMOGRAM 02/10/2017 02/10/2015 LIPID PANEL 08/22/2017 08/22/2012, 08/22/2012, 08/22/2012 RSV VACCINE (1 - Risk 50-74 years 1-dose series) 2018 ZOSTER VACCINES (1 of 2) 2018 DEPRESSION SCREENING 04/01/2019 04/01/2018 PAP SMEAR 03/28/2020 03/28/2017 INFLUENZA VACCINE (#1) 2025 COVID-19 VACCINE (3 - 2024-2 6 season) 2025 03/10/2021, 02/09/2021 SMOKING STATUS SCREENING (On ce After 26 Yrs) Completed 04/01/2018 HEPATITIS A VACCINES Aged Out No long er eligible based on patient's age to complete this topic HIB VACCINES Aged Out No longer eligi ble based on patient's age to complete this topic IPV VACCINES Aged Out No longer eligi ble based on patient's age to complete this topic MENINGOCOCCAL VACCINES (ACWY) Aged Out No longer eligible based on patient's age to complete this topic MENINGOCOCCAL VACCINES (B) Aged Out N o longer eligible based on patient's age to complete this topic Medical Devices Not on file Procedures Procedure Name Priority Date/Time Associated Diagnosis Comments OUTSIDE HDL Routine 08/22/2012 from Last 3 Months or Most Recently Relevant to Health Maintenance Results * Outside HDL (08/22/2012) HDL - External 55 40 - 80 mg/dL [facility] Provider LAB BLOOD ORDERABLES Tiki l Result from Last 3 Months or Most Recently Relevant to Health Maintenance [facility] CIGNA HMO POS Care Teams Recreation Superintendent Relationship Specialty Start Date End Date Pcp, Unknown PCP - General 07/06/21 Additional Source Comments The information contained in this document represents components of the legal health record. It is not the complete legal health record.[facility]
== END 2025-10-06 15:45 | disposition home or self-care (01) ==
LOC: HO.HMCC 14:13
PROVIDERS: PCP Internal Medicine; Visit Provider Internal Medicine
DX: Z00.01 Encounter for general adult medical examination with abnormal findings (principal); Z13.220 Encounter for screening for lipoid disorders; E89.0 Postprocedural hypothyroidism; J45.990 Exercise induced bronchospasm

== ENCOUNTER → 2025-10-06 14:12 | Outpatient (BNVA) | payer OTHER, SELFPAY | PROVIDERS: PCP Internal Medicine; Visit Provider Internal Medicine | DX: Z00.01 Encounter for general adult medical examination with abnormal findings (principal); J45.990 Exercise induced bronchospasm; E89.0 Postprocedural hypothyroidism | CPT/HCPCS: 96127 ==

== ENCOUNTER 2025-10-15 06:11 | Outpatient (REF) | payer OTHER, SELFPAY ==
--- OUTSIDE RECORDS SUMMARY | 2025-10-15 06:15 | XMS_ITS | Clinical Summary ---
Author Organization [facility] Address [address] [place] [address] Phone Care Team Providers Care Expediter Name Role Phone Pcp, Unknown Primary Care [...] - External 55 40 - 80 mg/dL [facility] Provider LAB BLOOD ORDERABLES Tiki l Result from Last 3 Months or Most Recently Relevant to Health Maintenance Insurance [facility] [place] [id number] [facility] Address: [facility] [id number] [place] [address] Care Teams Expediter Relationship Specialty Start Date End Date Pcp, Unknown PCP - General 07/06/21 Additional Source Comments The information contained in this document represents components of the legal health record. It is not the complete legal health record.[facility]
--- OUTSIDE RECORDS SUMMARY | 2025-10-15 06:15 | XMS_ITS | Patient Health Record ---
Author Organization [facility] Address [address] [place] [address] Care Team Providers Care Health And Physical Education Teacher Name Role Phone Alvrao Negron MD Primary Care Provider Unavailab holt lazarusTez Morgan Unavailable [phone] Reason For Referral No Information Medications Medication [...] Status W/U Status Risk Notes Problem Bursitis (55848107) Bursitis (727.3) Active confirmed Problem Myositis (86045761) Myositis (729.1) Active confirmed Problem Pain in limb (21908103) Pain in Limb (729.5) Active confirmed Problem Plantar fasciitis (197466760) Plantar Fasciitis (728.71) Active confirmed Problem Calcaneal spur (05954591) Calcaneal spur (726.73) Active confirmed Plan Of Treatment Pending Test Test Name Order Date X ray : Foot, right 2V 04/03/2012 Insurance Providers Payer Name Payer Address Payer Phone Subscriber Number Group Number Insured Name Patient Relationship to Insured Coverage Start Date Coverage End Date Cigna [address] [place] [id number] [id number] Cole Langford Spouse - patient is the spouse of the insured 1 Medical (General) History Medical History History ICD Code chicken pox
[2025-10-15 11:11] LABS: Alanine Aminotransferase 13 U/L (0-31); Anion Gap 8 (12-20); Aspartate Amino Transferase 22 U/L (5-31); Blood Urea Nitrogen 17 mg/dL (9-16); Calcium 9.3 mg/dL (8.4-10.2); Carbon Dioxide 30 mmol/L (22-29); Chloride 109 mmol/L (96-108); Cholesterol 193 mg/dL (<200); Estimated Glomerular Filt Rate 51; HDL Cholesterol 63 mg/dL (>40); Potassium 4.0 mmol/L (3.3-5.1); Sodium 143 mmol/L (135-145); Triglycerides 78 mg/dL (<150)
== END 2025-10-15 06:12 | disposition home or self-care (01) ==
LOC: HO.HMGCLDS 06:11
PROVIDERS: PCP Internal Medicine; Visit Provider Internal Medicine
DX: Z13.220 Encounter for screening for lipoid disorders (principal); Z13.1 Encounter for screening for diabetes mellitus; Z13.6 Encounter for screening for cardiovascular disorders; Z78.0 Asymptomatic menopausal state
CPT/HCPCS: 36415; 80048; 80061; 82306; 84450; 84460